=== PATIENT | female | born 1955 | race Caucasian/White ===

== ENCOUNTER → 2020-03-18 | Outpatient (CLI) | payer MEDICARE, OTHER ==
--- NOTE | 2020-03-18 14:32 | KCIC ---
EXAM: LEFT KNEE, 3 VIEWS. HISTORY: Lateral left knee pain. COMPARISON: None. FINDINGS: No fractures are identified. Joint spaces are maintained. Alignment is normal. There is no joint effusion. IMPRESSION: 1. No fracture or clear degenerative change. Electronically signed by: Arthur Delgadillo MD (03/18/2020 2:30 PM) [id number]
--- NOTE | 2020-03-18 14:36 | KCIC ---
EXAM: RIGHT HAND 3 VIEWS. HISTORY: Right hand pain after a fall. COMPARISON: None. FINDINGS: There is a subacute healing oblique fracture of the fifth metacarpal diaphysis. There is one half shaft width radial displacement and mild shortening of the distal fracture fragment. Alignment elsewhere is maintained. Cysts within the proximal and distal scaphoid measure up to 9 mm. Another cyst in the third metacarpal head measures 8 mm. These may represent subchondral degenerative cysts or primary bone cyst and appear benign. Osteopenia is at least moderate. IMPRESSION: 1. Subacute healing oblique fracture of the fifth metacarpal. Electronically signed by: Arthur Delgadillo MD (03/18/2020 2:33 PM) [id number]
== END | disposition home or self-care (01) ==
LOC: KCIC 08:23
PROVIDERS: ATTEND Family Medicine
DX: S62.326D Displaced fracture of shaft of fifth metacarpal bone, right hand, subsequent encounter for fracture with routine healing (principal); X58.XXXD Exposure to other specified factors, subsequent encounter; M85.841 Other specified disorders of bone density and structure, right hand
CPT/HCPCS: 73130; 73562

== ENCOUNTER → 2021-02-21 | Outpatient (CLI) | payer MEDICARE, OTHER ==
--- NOTE | 2021-02-21 09:38 | KCIC ---
EXAMINATION: MRI LEFT FOOT WITHOUT IV CONTRAST CLINICAL HISTORY: INJURY W/ SWELLING L FOOT 4TH AND 5TH METATARSAL. Acute pain in lateral left forefo ot x 2 weeks. TECHNIQUE: Multiplanar multisequential images obtained through the forefoot without intravenous contr ast. COMPARISON: None FINDINGS: BONE MARROW: Increased STIR signal throughout the fifth metatarsal shaft without corresponding decrea sed T1 signal. No discrete fracture line definitively visualized. Normal marrow signal in the fourth metatarsal. CARTILAGE: Subchondral marrow reactive/cystic changes at the middle-lateral cuneiform articulation, c ompatible with overlying full-thickness chondral loss/fissuring. TENDONS: Flexor and extensor tendons within normal limits. JOINT FLUID: No significant joint effusion. INTERMETATARSAL SPACES: No evidence of Hanna's neuroma or intermetatarsal bursitis. LISFRANC LIGAMENT: Intact. PLANTAR APONEUROSIS: Visualized portions of the plantar aponeurosis within normal limits. MUSCLES: Muscle bulk and signal intensity within normal limits. OTHER: Mild soft tissue edema along the dorsal aspect of the lateral forefoot, most pronounced along the fifth metatarsal shaft IMPRESSION: Findings compatible with stress reaction in the fifth metatarsal shaft as described. Moderate full-thickness chondral wear in the middle-lateral cuneiform articulation. Electronically signed by: Benjamín Robbins DO (02/21/2021 9:36 AM) [id number]
== END ==
LOC: KCIC MRI 07:59
PROVIDERS: ATTEND Podiatrist
DX: S99.822A Other specified injuries of left foot, initial encounter (principal); X58.XXXA Exposure to other specified factors, initial encounter; Y93.89 Activity, other specified; Y92.89 Other specified places as the place of occurrence of the external cause; Y99.8 Other external cause status
CPT/HCPCS: 73718